=== PATIENT | male | born 1995 | race Caucasian/White ===

== ENCOUNTER 2017-12-31 18:15 | Emergency (ER) | payer OTHER ==
[~2017-12-31] VITALS: Ht 182.9 cm; Wt 104.5 kg
[2017-12-31] MEDS ORDERED: HYDROcodone/acetaminophen 10/325mg tab PO ONE (21:00)
[2017-12-31] MEDS ORDERED: ketorolac trometh inj. 60 MG/2 ML VIAL IM ONE (21:00)
[2017-12-31] MEDS ORDERED: CYCL-1 PO (22:19)
[2017-12-31 22:29] VITALS: BP 148/100
== END 2017-12-31 22:32 | disposition home or self-care (01) ==
LOC: ER 18:15
DX: S39.012A Strain of muscle, fascia and tendon of lower back, initial encounter (principal); S46.812A Strain of other muscles, fascia and tendons at shoulder and upper arm level, left arm, initial encounter; G89.29 Other chronic pain; F17.200 Nicotine dependence, unspecified, uncomplicated; V49.88XA Car occupant (driver) (passenger) injured in other specified transport accidents, initial encounter; Y93.89 Activity, other specified; Y92.413 State road as the place of occurrence of the external cause; Y99.9 Unspecified external cause status
CPT/HCPCS: 72131; 72192; 96372; 99284; J1885

== ENCOUNTER 2018-07-20 13:50 | Emergency (ER) | payer MEDICAID, OTHER ==
[~2018-07-20] VITALS: Ht 182.9 cm; Wt 90.9 kg
[~2018-07-20 13:50] MED LIST: CYCL-1 PO
[2018-07-20 13:53] VITALS: BP 140/80
[2018-07-20] MEDS ORDERED: METH4TAB3 PO (14:08)
[2018-07-20] MEDS ORDERED: methylPREDNISolone sod succ 125mg/2ml vial IM ONE (14:10)
== END 2018-07-20 14:31 | disposition home or self-care (01) ==
LOC: ER 13:51
DX: T78.40XA Allergy, unspecified, initial encounter (principal); G89.29 Other chronic pain; F17.200 Nicotine dependence, unspecified, uncomplicated; Z98.890 Other specified postprocedural states; Z79.899 Other long term (current) drug therapy; X58.XXXA Exposure to other specified factors, initial encounter
CPT/HCPCS: 96372; 99283; J2930

== ENCOUNTER 2019-08-06 20:24 | Emergency (ER) | payer MEDICAID, OTHER ==
[~2019-08-06] VITALS: Ht 185.4 cm; Wt 100.0 kg
[~2019-08-06 20:24] MED LIST changes: +METH4TAB3 PO
[2019-08-06 20:32] VITALS: BP 147/85
--- NOTE | 2019-08-06 23:50 | NUR ---
Wound cleaned with NSS and gauze, xeroform gauze and 2inch gauze wrap applied as instructed by the Provider Domenic SHARP.
== END 2019-08-07 00:07 | disposition home or self-care (01) ==
LOC: ER 20:25
DX: S61.012A Laceration without foreign body of left thumb without damage to nail, initial encounter (principal); G89.29 Other chronic pain; F10.99 Alcohol use, unspecified with unspecified alcohol-induced disorder; Z98.890 Other specified postprocedural states; Z79.899 Other long term (current) drug therapy; W45.8XXA Other foreign body or object entering through skin, initial encounter; Y93.89 Activity, other specified; Y92.89 Other specified places as the place of occurrence of the external cause; Y99.0 Civilian activity done for income or pay; Y90.9 Presence of alcohol in blood, level not specified
CPT/HCPCS: 12001; 99283

== ENCOUNTER 2020-04-09 16:44 | Emergency (ER) | payer OTHER ==
[~2020-04-09] VITALS: Ht 182.9 cm; Wt 124.5 kg
[2020-04-09 17:40] LABS: CLARITY,URINE SLIGHTLY CLOUDY (Clear); GLUCOSE, URINE NEGATIVE (Neg); KETONES,URINE TRACE mg/dl (Neg); LEUKOCYTE ESTERASE ,URINE NEGATIVE (Neg); NITRITES, URINE NEGATIVE (Neg); OCCULT BLOOD,URINE NEGATIVE (Neg); PH,URINE 6.5 (4.8-8.0); PROTEIN,URINE 100 mg/dl (Neg)
[2020-04-09 17:41] LABS: COLOR,URINE DARK YELLOW (Yellow); UA COLLECTION TYPE CLN CATCH MIDSTREAM
[2020-04-09 17:45] LABS: MUCUS STRANDS MANY /LPF (Neg)
[2020-04-09 17:46] LABS: HYALINE CASTS 0-3 /LPF (NEGATIVE); SQUAMOUS EPITHELIAL CELL,UR MODERATE /LPF (FEW)
[2020-04-09 17:49] LABS: BACTERIA,URINE FEW /HPF (Neg); TRANSITIONAL EPI CELLS,URINE FEW /HPF
[2020-04-09 18:19] LABS: BASOPHILS % (AUTO) 0.7 % (0-1); EOSINOPHILS # (AUTO) 0.2 X10'3 (0-0.9); EOSINOPHILS % (AUTO) 2.4 % (0-6); HEMATOCRIT 46.2 % (42.0-52.0); HEMOGLOBIN 15.7 g/dl (14.0-17.9); LYMPHOCYTES # (AUTO) 1.7 X10'3 (1.1-4.8); LYMPHOCYTES % (AUTO) 24.9 % (21-51); MEAN CORPUSCULAR HEMOGLOBIN 31.3 PG (27.0-31.0); MEAN CORPUSCULAR VOLUME 92.1 FL (78-98); MEAN PLATELET VOLUME 7.9 FL (7.4-10.4); MONOCYTES # (AUTO) 0.6 X10'3 (0-0.9); MONOCYTES % (AUTO) 9.1 % (2-12); NEUTROPHILS # (AUTO) 4.3 X10'3 (1.8-7.7); NEUTROPHILS % (AUTO) 62.9 % (42-75); PLATELET COUNT 248 X10'3 (140-440); RED BLOOD COUNT 5.02 X10'6 (4.70-6.10); RED CELL DISTRIBUTION WIDTH 13.1 % (11.5-14.5); WHITE BLOOD COUNT 6.9 X10'3 (4.5-11.0)
[2020-04-09 18:29] LABS: ALANINE AMINOTRANSFERASE 184 U/L (12-78); ALBUMIN 3.7 G/DL (3.4-5.0); ALBUMIN/GLOBULIN RATIO 0.9 (1.1-1.5); ALKALINE PHOSPHATASE 117 IU/L (46-116); ANION GAP 13 (8-16); ASPARTATE AMINO TRANSFERASE 125 U/L (10-37); BILIRUBIN,TOTAL 0.4 MG/DL (0.1-1.0); BLOOD UREA NITROGEN 10 MG/DL (7-18); BUN/CREATININE RATIO 11.1 (5.4-32.0); CALCIUM 8.7 MG/DL (8.5-10.1); CHLORIDE 100 MMOL/L (99-107); GLUCOSE 126 MG/DL (70-104); LIPASE 75 U/L (73-393); POTASSIUM 3.2 MMOL/L (3.5-5.1); SODIUM 139 MMOL/L (135-145); TOTAL CARBON DIOXIDE 26.2 MMOL/L (24-32); TOTAL PROTEIN 7.8 G/DL (6.4-8.2); eGFR > 90 ML/MIN
--- NOTE | 2020-04-09 18:54 | NUR ---
Awaiting us of abdomen. REPORTS 8 TO 9 OUT OF 10 PAIN TO HIS RIGHT FLANK. PT UP TO BR TO VOID WITH STEADY GAIT.
[2020-04-09] MEDS ORDERED: potassium Cl 20 mEq SR tablet PO ONE (19:35)
[2020-04-09] MEDS ORDERED: ketorolac tromethamine 15mg/ml inj. IM ONE (19:35)
[2020-04-09] MEDS ORDERED: BACDS PO (19:48)
[2020-04-09] MEDS ORDERED: morphine 4 MG/ML inj SYRINge IV ONE (19:50)
[2020-04-09] MEDS ORDERED: ondansetron/PF 4mg/2ml inj IV ONE (19:50)
[2020-04-09 20:07] VITALS: BP 158/113
== END 2020-04-09 20:09 | disposition home or self-care (01) ==
LOC: ER 16:45
DX: R10.11 Right upper quadrant pain (principal); R11.2 Nausea with vomiting, unspecified; R53.83 Other fatigue; G89.29 Other chronic pain; Z98.890 Other specified postprocedural states; Z72.89 Other problems related to lifestyle; Z79.899 Other long term (current) drug therapy
CPT/HCPCS: 36415; 76700; 80053; 81001; 83690; 85025; 87088; 96372; 96374; 96375; 99285; J1885; J2270; J2405